=== PATIENT | male | born 1990 | race Caucasian/White ===

== ENCOUNTER 2018-07-26 18:55 | Emergency (ER) | END 2018-07-26 22:47 | disposition home or self-care (01) ==

== ENCOUNTER 2018-08-03 01:10 | Emergency (ER) | END 2018-08-03 02:13 | disposition home or self-care (01) ==

== ENCOUNTER 2018-08-03 22:07 | Emergency (ER) | END 2018-08-03 23:05 | disposition home or self-care (01) ==

== ENCOUNTER 2019-01-31 20:31 | Emergency (ER) | payer SELFPAY ==
[~2019-01-31] VITALS: Ht 160 cm; Wt 82.9 kg
[~2019-01-31 20:31] MED LIST: AZIT250T PO; NAPR-985 PO; OMEP20CA16 PO; ONDA4TAB14 PO; ONDA4TAB8 PO; RANI150T35 PO
[2019-01-31 20:35] VITALS: BP 136/82; PULSE 78; RESP 18; Ht 160 cm; Wt 82.9 kg
[2019-02-01] MEDS ORDERED: MAGN296S40 PO (22:11)
[2019-02-01] MEDS ORDERED: MAGN400O19 PO (22:11)
== END 2019-01-31 21:20 | disposition left against medical advice (07) ==
LOC: FTE 20:31
DX: Z53.21 Procedure and treatment not carried out due to patient leaving prior to being seen by health care provider (principal)

== ENCOUNTER 2019-02-01 19:58 | Emergency (ER) | payer OTHER ==
[~2019-02-01] VITALS: Ht 172.7 cm; Wt 83.9 kg
[2019-02-01 20:01] VITALS: Ht 172.7 cm; Wt 83.9 kg
--- NOTE | 2019-02-01 20:14 | ERD ---
ER Documentation Chief Complaint Chief Complaint AP, CONSTIPATION, BACK PAIN X'S 10 DAYS HPI 28-year-old male, previously healthy, presents to the emergency department, complaining of 10 days with intermittent episodes of abdominal pain, constipation and back pain. He denies fevers, no chills, no nausea vomiting, no weight loss, no red blood per rectum. The patient was seen 2 days ago at [facility], where he had extensive workup including a CT of the abdomen, according to the patient he was diagnosed with constipation. The patient is also requesting a prescription for a cough medication with codeine for cough. ROS All systems reviewed and are negative except as per history of present illness. Medications Home Meds Active Scripts Magnesium Citrate* (Magnesium Citrate*) 296 Ml Solution, 296 ML PO ONCE, #1 BOTTLE Prov:KAREEM HALL MD 02/01/19 Magnesium Hydroxide* (Milk Of Magnesia*) 400 Mg/5 Ml Oral.susp, 30 ML PO BID for 3 Days, #1 BOTTLE Prov:KAREEM HALL MD 02/01/19 Ranitidine Hcl* (Zantac*) 150 Mg Tablet, 150 MG PO BID PRN for EPIGASTRIC PAIN, #30 TAB Prov:KENY LUCERO PA-C 08/03/18 Omeprazole* (Omeprazole*) 20 Mg Capsule.dr, 20 MG PO DAILY, #20 Prov:KENY LUCERO PA-C 08/03/18 Ondansetron (Ondansetron Odt) 4 Mg Tab.rapdis, 4 MG PO Q6H PRN for NAUSEA AND/OR VOMITING, #10 TAB Prov:KENY LUCERO PA-C 08/03/18 Azithromycin* (Zithromax*) 250 Mg Tablet, 250 MG PO .AddyPACK DIRECTED, #6 TAB TAKE 500 MG (2 TABS) THE FIRST DAY THEN 250 MG (1 TAB) DAYS 2-5 Prov:LUIS HUFFMAN PA-C 08/03/18 Naproxen* (Naprosyn*) 500 Mg Tablet, 500 MG PO BID PRN for PAIN AND/OR INFLAMMATION, #30 TAB Prov:TYLER BADILLO PA-C 07/26/18 Ondansetron Hcl* (Zofran*) 4 Mg Tablet, 4 MG PO Q6H for NAUSEA AND/OR VOMITING, #30 TAB Prov:TYLER BADILLO PA-C 07/26/18 Allergies Allergies: Coded Allergies: No Known Allergy (Unverified , 07/26/18) PMhx/Soc Hx Alcohol Use: Yes Hx Substance Use: No Hx Tobacco Use: No Physical Exam Vitals Vital Signs Date Temp Pulse Resp B/P (MAP) Pulse Ox O2 O2 Flow FiO2 Time Delivery Rate 02/01/19 97.0 107 18 138/75 98 20:01 (96) Physical Exam Const: No acute distress Head: Atraumatic Eyes: Normal Conjunctiva ENT: Normal External Ears, Nose and Mouth. Neck: Full range of motion. No meningismus. Resp: Clear to auscultation bilaterally Cardio: Regular rate and rhythm, no murmurs Abd: Soft, non tender, non distended. Normal bowel sounds Skin: No petechiae or rashes Back: No midline or flank tenderness Ext: No cyanosis, or edema Neur: Awake and alert Psych: Normal Mood and Affect Result Diagram: 02/01/19205202/01/192052 Results 24 hrs Laboratory Tests Test 02/01/19 20:53 White Blood Count 7.3 10^3/ul Red Blood Count 5.15 10^6/ul Hemoglobin 14.5 g/dl Hematocrit 43.3 % Mean Corpuscular Volume 84.1 fl Mean Corpuscular Hemoglobin 28.2 pg Mean Corpuscular Hemoglobin Concent 33.5 g/dl Red Cell Distribution Width 11.3 % Platelet Count 244 10^3/UL Mean Platelet Volume 9.9 fl Immature Granulocytes % 0.400 % Neutrophils % 67.8 % Lymphocytes % 21.4 % Monocytes % 8.8 % Eosinophils % 1.1 % Basophils % 0.5 % Nucleated Red Blood Cells % 0.0 /100WBC Immature Granulocytes # 0.030 10^3/ul Neutrophils # 4.9 10^3/ul Lymphocytes # 1.6 10^3/ul Monocytes # 0.6 10^3/ul Eosinophils # 0.1 10^3/ul Basophils # 0.0 10^3/ul Nucleated Red Blood Cells # 0.0 10^3/ul Urine Color YELLOW Urine Clarity CLEAR Urine pH 7.0 Urine Specific [place] 1.016 Urine Ketones TRACE mg/dL Urine Nitrite NEGATIVE mg/dL Urine Bilirubin NEGATIVE mg/dL Urine Urobilinogen NEGATIVE mg/dL Urine Leukocyte Esterase NEGATIVE [place]vis/ul Urine Hemoglobin NEGATIVE mg/dL Urine Glucose NEGATIVE mg/dL Urine Total Protein NEGATIVE mg/dl Sodium Level 142 mmol/L Potassium Level 4.1 mmol/L Chloride Level 102 mmol/L Carbon Dioxide Level 30 mmol/L Anion Gap 10 Blood Urea Nitrogen 15 mg/dl Creatinine 0.92 mg/dl Est Glomerular Filtrat Rate mL/min > 60 mL/min Glucose Level 97 mg/dl Calcium Level 9.9 mg/dl Total Bilirubin 0.4 mg/dl Direct Bilirubin 0.00 mg/dl Indirect Bilirubin 0.4 mg/dl Aspartate Amino Transf (AST/SGOT) 22 IU/L Alanine Aminotransferase (ALT/SGPT) 14 IU/L Alkaline Phosphatase 51 IU/L Total Protein 7.6 g/dl Albumin 4.7 g/dl Globulin 2.90 g/dl Albumin/Globulin Ratio 1.62 Lipase 156 U/L Current Medications Medications Dose Sig/Ayaka Start Time Status Last (Trade) Ordered Route PRN Stop Time Admin Dose Reason Admin 40 ml ONCE ONCE 02/01/19 DC 02/01/19 Miscellaneous PO 21:00 20:50 Medication 02/01/19 21:01 (Gi Cocktail (2)) Magnesium 30 ml ONCE ONCE 02/01/19 DC 02/01/19 Hydroxide PO 21:30 21:54 (Milk Of Mag) 02/01/19 21:31 Magnesium 300 ml ONCE ONCE 02/01/19 DC 02/01/19 Citrate PO 21:30 21:54 (Citroma) 02/01/19 21:31 Patient: CAM SOLIS : 1990 Age: 28 Sex: M [id number]: 02/01/192040 Ordering MD: KAREEM HALL MD Location: [facility] Room/Bed: PROCEDURE: XR Abdomen. CLINICAL INDICATION: Pain TECHNIQUE: Five AP erect and supine abdomen x-rays were obtained. COMPARISON: None. FINDINGS: There is abundant stool throughout the left and sigmoid colon. There is no evidence of obstruction or ileus. There is no free gas. There are no abnormal calcifications . The osseus structures are unremarkable. IMPRESSION: No bowel obstruction or ileus. Abundant stool in the left and sigmoid colon. Procedures/MDM Differential diagnosis include but not limited to: bowel Obstruction, ileus, fecal impaction. Low suspicion for acute abdomen. Physical examination and clinical presentation consistent most likely with constipation without evidence of impaction. During the ED course the patient remained stable, no new complaints. Treatment options, results and clinical impression discussed with the patient who agrees with management. The patient is stable to be treated outpatient and will be discharged home. some side effects of prescribed medications were reviewed. The patient was instructed to follow up with the primary care provider in the next 48h. If symptoms persist, worsen or new symptoms develop, then patient should return to the ED immediately. Instructions explained and given directly by me to the patient with acknowledgment and demonstrated understanding. Disclaimer: Inadvertent spelling and grammatical errors are likely due to EHR/dictation software use and do not reflect on the overall quality of patient care. Also, please note that the electronic time recorded on this note does not necessarily reflect the actual time of the patient encounter. Departure Diagnosis: Primary Impression: Constipation Additional Impression: Abdominal pain Condition: Stable Patient Instructions: Constipation (Adult) Additional Instructions: Thank you very much for allowing us to participate in your care. Your health and safety is our top priority at [facility]. Call your primary care doctor TOMORROW for an appointment during the next 2-4 days and bring all the information and medications prescribed. Have prescriptions filled and follow precisely the directions on the label. If the symptoms get worse and your provider is unavailable, return to the Emergency Department immediately. KAREEM HALL MD Feb 01, 2019 20:14
[2019-02-01] MEDS ORDERED: LIDOCAINE/MYLANTA 40 ML BTL PO ONE (21:00)
[2019-02-01] MEDS ORDERED: MAGNESIUM HYDROXIDE 30ML CUP PO ONE (21:30)
[2019-02-01] MEDS ORDERED: MAGNESIUM CITRATE 300 ML BTL PO ONE (21:30)
[2019-02-01] MEDS ORDERED: MAGN296S40 PO (22:11)
[2019-02-01] MEDS ORDERED: MAGN400O19 PO (22:11)
[2019-02-01 22:25] VITALS: BP 124/78; PULSE 74; RESP 16
[2019-02-02] MEDS ORDERED: POLY17PO6 PO (15:31)
[2019-02-02] MEDS ORDERED: BISA-57 PO (15:31)
== END 2019-02-01 22:26 | disposition home or self-care (01) ==
LOC: FTE 19:58
DX: K59.00 Constipation, unspecified (principal)
CPT/HCPCS: 36415; 74019; 80053; 81003; 83690; 85025; Z7502; Z7610

== ENCOUNTER 2019-02-02 13:56 | Emergency (ER) | payer OTHER ==
[~2019-02-02] VITALS: Ht 172.7 cm; Wt 81.8 kg
[~2019-02-02 13:56] MED LIST changes: +MAGN296S40 PO; +MAGN400O19 PO
[2019-02-02 13:58] VITALS: BP 134/85; PULSE 102; RESP 18; Ht 172.7 cm; Wt 81.8 kg
[2019-02-02] MEDS ORDERED: NA PHOSPHATE/BIPHOS 133 ML ENEMA PR ONE (15:00)
[2019-02-02] MEDS ORDERED: BISACODYL 10 MG SUPP PR ONE (15:00)
[2019-02-02] MEDS ORDERED: POLY17PO6 PO (15:31)
[2019-02-02] MEDS ORDERED: BISA-57 PO (15:31)
--- NOTE | 2019-02-02 15:36 | ERD ---
ER Documentation Chief Complaint Chief Complaint ON AND OFF ABDOMINAL PAIN AND DIARRHEA STARTED JANUARY 20 HPI 28-year-old male presents with intermittent abdominal pain and constipation which she states is been since 2 weeks ago. Is been seen at multiple hospitals and he had a CT scan 2 days ago and was seen here yesterday. He states that he does not have a bowel movement with milk of magnesia and magnesium citrate. He denies fevers, vomiting, current abdominal pain. He is requesting a chest x-ray for left chest wall pain. He states that he had a normal EKG at [place] 2-3 days ago. Patient has a history of multiple ER visits for variety of complaints. Patient denies any opiate use although note is made of a request for promethazine with codeine at yesterday's visit. ROS All systems reviewed and are negative except as per history of present illness. Medications Home Meds Active Scripts Polyethylene Glycol* (Miralax*) 17 Gm Powd.pack, 17 GM PO DAILY, #7 Prov:GOSIA CHOWDHURY MD 02/02/19 Bisacodyl* (Dulcolax*) 5 Mg Tablet.dr, 10 MG PO DAILY PRN for CONSTIPATION, #10 TAB Prov:GOSIA CHOWDHURY MD 02/02/19 Magnesium Citrate* (Magnesium Citrate*) 296 Ml Solution, 296 ML PO ONCE, #1 BOTTLE Prov:KAREEM HALL MD 02/01/19 Magnesium Hydroxide* (Milk Of Magnesia*) 400 Mg/5 Ml Oral.susp, 30 ML PO BID for 3 Days, #1 BOTTLE Prov:KAREEM HALL MD 02/01/19 Ranitidine Hcl* (Zantac*) 150 Mg Tablet, 150 MG PO BID PRN for EPIGASTRIC PAIN, #30 TAB Prov:KENY LUCERO PA-C 08/03/18 Omeprazole* (Omeprazole*) 20 Mg Capsule., 20 MG PO DAILY, #20 Prov:KENY LUCERO PA-C 08/03/18 Ondansetron (Ondansetron Odt) 4 Mg Tab.rapdis, 4 MG PO Q6H PRN for NAUSEA AND/OR VOMITING, #10 TAB Prov:KENY LUCERO PA-C 08/03/18 Azithromycin* (Zithromax*) 250 Mg Tablet, 250 MG PO .MENDOZA DIRECTED, #6 TAB TAKE 500 MG (2 TABS) THE FIRST DAY THEN 250 MG (1 TAB) DAYS 2-5 Prov:HUFFMANLUIS ZAPATA 08/03/18 Naproxen* (Naprosyn*) 500 Mg Tablet, 500 MG PO BID PRN for PAIN AND/OR INFLAMMATION, #30 TAB Prov:TYLER BADILLO PA-C 07/26/18 Ondansetron Hcl* (Zofran*) 4 Mg Tablet, 4 MG PO Q6H for NAUSEA AND/OR VOMITING, #30 TAB Prov:TYLER BADILLO PA-C 07/26/18 Allergies Allergies: Coded Allergies: No Known Allergy (Unverified , 02/02/19) PMhx/Soc Medical and Surgical Hx: pt denies Medical Hx, pt denies Surgical Hx Hx Alcohol Use: Yes (SOCIALLY ) Hx Substance Use: No Hx Tobacco Use: No Smoking Status: Never smoker FmHx Family History: No diabetes, No coronary disease, No other Physical Exam Vitals Vital Signs Date Temp Pulse Resp B/P (MAP) Pulse Ox O2 O2 Flow FiO2 Time Delivery Rate 02/02/19 99.0 102 18 134/85 96 13:58 (101) Physical Exam Const: No acute distress Head: Atraumatic Eyes: Normal Conjunctiva ENT: Normal External Ears, Nose and Mouth. Neck: Full range of motion. No meningismus. Resp: Clear to auscultation bilaterally Cardio: Regular rate and rhythm, no murmurs Abd: Soft, non tender, non distended. Normal bowel sounds. Rectal exam shows soft stool in the vault. Suppository placed. No external lesions or masses. No melanotic stool or gross blood. Skin: No petechiae or rashes Back: No midline or flank tenderness Ext: No cyanosis, or edema Neur: Awake and alert Psych: Normal Mood and Affect Results 24 hrs Current Medications Medications Dose Sig/Ayaka Start Time Status Last (Trade) Ordered Route PRN Stop Time Admin Dose Reason Admin Bisacodyl 10 mg ONCE ONCE 02/02/19 DC 02/02/19 (Dulcolax NM 15:00 15:14 Supp) 02/02/19 15:01 Sodium 133 ml ONCE ONCE 02/02/19 DC 4/17/19 Biphosphate/ NM 15:00 15:14 Sodium 02/02/19 15:01 Phosphate (Fleet Enema) Procedures/MDM Patient presents with a history of complaints of constipation although he has soft stool in the rectal vault. There is no signs of obstruction, x-ray yesterday showed no ileus but did show signs of constipation. He has no signs of concerning abdominal pain, additional signs or symptoms. We will give a prescription of continuation of Dulcolax as well as enema as needed if he is unable to have a bowel movement. Patient return for fevers, vomiting, abdominal pain, new worsening symptoms with primary care doctor. The patient was stable with no new complaints during the ER course. Clinically, there is no current evidence to suggest meningitis, sepsis, acute abdomen, pneumonia, stroke, acute coronary syndrome, pulmonary embolism, aortic dissection or any other emergent condition appearing to require further evaluation or hospitalization. Patient counseled regarding my diagnostic impression and care plan. Prior to discharge all questions answered. Pt agrees with treatment plan and understands strict return precautions. Pt is instructed to follow up with primary care provider within 24-48 hours. Precautionary instructions provided including instructions to return to the ER if not improving or for any worsening or changing symptoms or concerns. Chest X-ray 1V Interpreted by me: Soft Tissue: No acute abnormalities Bones: No acute abnormalities Mediastinum/Cardiac Silhouette/Lungs: No acute abnormalities. Impression- normal 1 view chest x-ray EKG deferred for chest wall pain given normal EKG report 2 days ago and patient well-appearing without concerning signs or symptoms. Departure Diagnosis: Primary Impression: Constipation Constipation type: unspecified constipation type Qualified Codes: K59.00 - Constipation, unspecified Condition: Stable Patient Instructions: Constipation (Adult) Additional Instructions: No current signs or symptoms of concerning causes of constipation. Drink plenty of fluids at home. Use suppository as directed. Okay to use enema at home. GOSIA CHOWDHURY MD Feb 02, 2019 15:36
== END 2019-02-02 15:42 | disposition home or self-care (01) ==
LOC: FTE 13:56
DX: K59.00 Constipation, unspecified (principal)
CPT/HCPCS: 71045; Z7502; Z7610

== ENCOUNTER 2019-02-17 00:39 | Emergency (ER) | payer OTHER ==
[~2019-02-17] VITALS: Wt 79.9 kg
[~2019-02-17 00:39] MED LIST changes: +BISA-57 PO; +POLY17PO6 PO
[2019-02-17 00:44] VITALS: BP 138/86; PULSE 107; RESP 20; Wt 79.9 kg
--- NOTE | 2019-02-17 01:48 | ERD ---
ER Documentation Chief Complaint Chief Complaint AP, NAUSEA X'S 2 WEEKS HPI 29-year-old male presents with complaint of abdominal pain sore throat for the past 2 weeks. States that he has been to his many different emergency rooms [place] recent[place] one being yesterday and they did a CT of the abdomen and pelvis and the results were within normal limits. In addition he has been getting blood work and all those results within normal limits as well. He states that he is frustrated that he does not know the diagnosis but he is currently awaiting a referral to a slot manager from his primary care provider. He states that he would like to get an infectious disease panel to possibly rule out an infectious disease. Denies any fevers, chills, vomiting, dysuria, hematuria. ROS All systems reviewed and are negative except as per history of present illness. Medications Home Meds Active Scripts Polyethylene Glycol* (Miralax*) 17 Gm Powd.pack, 17 GM PO DAILY, #7 Prov:GOSIA CHOWDHURY MD 02/02/19 Bisacodyl* (Dulcolax*) 5 Mg Tablet., 10 MG PO DAILY PRN for CONSTIPATION, #10 TAB Prov:GOSIA CHOWDHURY MD 02/02/19 Magnesium Citrate* (Magnesium Citrate*) 296 Ml Solution, 296 ML PO ONCE, #1 BOTTLE Prov:KAREEM HALL MD 02/01/19 Magnesium Hydroxide* (Milk Of Magnesia*) 400 Mg/5 Ml Oral.susp, 30 ML PO BID for 3 Days, #1 BOTTLE Prov:KAREEM HALL MD 02/01/19 Ranitidine Hcl* (Zantac*) 150 Mg Tablet, 150 MG PO BID PRN for EPIGASTRIC PAIN, #30 TAB Prov:KENY LUCERO PA-C 08/03/18 Omeprazole* (Omeprazole*) 20 Mg Capsule., 20 MG PO DAILY, #20 Prov:KENY LUCERO PA-C 08/03/18 Ondansetron (Ondansetron Odt) 4 Mg Tab.rapdis, 4 MG PO Q6H PRN for NAUSEA AND/OR VOMITING, #10 TAB Prov:KENY LUCERO PA-C 08/03/18 Azithromycin* (Zithromax*) 250 Mg Tablet, 250 MG PO .ZPACK DIRECTED, #6 TAB TAKE 500 MG (2 TABS) THE FIRST DAY THEN 250 MG (1 TAB) DAYS 2-5 Prov:LUIS HUFFMAN PA-C 08/03/18 Naproxen* (Naprosyn*) 500 Mg Tablet, 500 MG PO BID PRN for PAIN AND/OR INFLAMMATION, #30 TAB Prov:TYLER BADILLO PA-C 07/26/18 Ondansetron Hcl* (Zofran*) 4 Mg Tablet, 4 MG PO Q6H for NAUSEA AND/OR VOMITING, #30 TAB Prov:TYLER BADILLO PA-C 07/26/18 Allergies Allergies: Coded Allergies: No Known Allergy (Unverified , 02/02/19) PMhx/Soc Medical and Surgical Hx: pt denies Medical Hx, pt denies Surgical Hx Hx Alcohol Use: No Hx Substance Use: No Hx Tobacco Use: No Smoking Status: Never smoker FmHx Family History: No diabetes, No coronary disease, No other Physical Exam Vitals Vital Signs Date Temp Pulse Resp B/P (MAP) Pulse Ox O2 O2 Flow FiO2 Time Delivery Rate 02/17/19 97.9 107 20 138/86 97 00:44 (103) Physical Exam Const: No acute distress Head: Atraumatic Eyes: Normal Conjunctiva ENT: Normal External Ears, Nose and Mouth. Tonsils are moderately erythemato us but nonedematous bilaterally. Uvula is midline. There are no peritonsillar masses noted. Neck: Full range of motion. No meningismus. Resp: Clear to auscultation bilaterally Cardio: Regular rate and rhythm, no murmurs Abd: Soft, non tender, non distended. Normal bowel sounds Skin: No petechiae or rashes Back: No midline or flank tenderness Ext: No cyanosis, or edema Neur: Awake and alert Psych: Normal Mood and Affect Result Diagram: 02/17/193 02/17/19 0123 Results 24 hrs Laboratory Tests Test 02/17/19 01:23 White Blood Count 8.9 10^3/ul Red Blood Count 5.58 10^6/ul Hemoglobin 15.8 g/dl Hematocrit 46.6 % Mean Corpuscular Volume 83.5 fl Mean Corpuscular Hemoglobin 28.3 pg Mean Corpuscular Hemoglobin Concent 33.9 g/dl Red Cell Distribution Width 11.9 % Platelet Count 286 10^3/UL Mean Platelet Volume 9.8 fl Immature Granulocytes % 0.300 % Neutrophils % 69.0 % Lymphocytes % 21.3 % Monocytes % 8.3 % Eosinophils % 0.5 % Basophils % 0.6 % Nucleated Red Blood Cells % 0.0 /100WBC Immature Granulocytes # 0.030 10^3/ul Neutrophils # 6.1 10^3/ul Lymphocytes # 1.9 10^3/ul Monocytes # 0.7 10^3/ul Eosinophils # 0.0 10^3/ul Basophils # 0.1 10^3/ul Nucleated Red Blood Cells # 0.0 10^3/ul Urine Color ARLEN Urine Clarity SLIGHTLY CLOUDY Urine pH 5.0 Urine Specific [place] 1.032 Urine Ketones 2+ mg/dL Urine Nitrite NEGATIVE mg/dL Urine Bilirubin NEGATIVE mg/dL Urine Urobilinogen 1+ mg/dL Urine Leukocyte Esterase NEGATIVE [place]vis/ul Urine Microscopic RBC 3 /HPF Urine Microscopic WBC 0 /HPF Urine Renal Epithelial Cells FEW /HPF Urine Mucus MANY /HPF Urine Hemoglobin NEGATIVE mg/dL Urine Glucose NEGATIVE mg/dL Urine Total Protein 1+ mg/dl Sodium Level 144 mmol/L Potassium Level 4.4 mmol/L Chloride Level 100 mmol/L Carbon Dioxide Level 33 mmol/L Anion Gap 11 Blood Urea Nitrogen 19 mg/dl Creatinine 1.04 mg/dl Est Glomerular Filtrat Rate mL/min > 60 mL/min Glucose Level 118 mg/dl Calcium Level 10.6 mg/dl Total Bilirubin 0.6 mg/dl Direct Bilirubin 0.00 mg/dl Indirect Bilirubin 0.6 mg/dl Aspartate Amino Transf (AST/SGOT) 30 IU/L Alanine Aminotransferase (ALT/SGPT) 25 IU/L Alkaline Phosphatase 55 IU/L Total Protein 8.3 g/dl Albumin 5.2 g/dl Globulin 3.10 g/dl Albumin/Globulin Ratio 1.67 Rapid Plasma Reagin Pending Hepatitis C Antibody NEGATIVE Monoscreen Positive HIV (1&2) Antibody NEGATIVE Procedures/MDM MDM: Results were positive for mono which could account for patient's sore throat as well as some of his other nebulous constitutional symptoms. Patient advised to refrain from contact sports and follow-up with his primary care provider. Patient also advised to rest and stay well-hydrated. Patient educated them on it was very contagious and he should not be sharing saliva or drinks with any others until he is better. I have suspicion for bursitis, cholecystitis, cholelithiasis, or any other emergent condition. Patient discharged with strict ER precautions. Patient advised to follow up with PMD. All questions answered at discharge. Departure Diagnosis: Primary Impression: Mononucleosis Infectious mononucleosis etiology: unspecified organism Infectious mononucleosis complication: without complication Qualified Codes: B27.90 - Infectious mononucleosis, unspecified without complication Condition: KENY Askew February 17, 2019 01:48
[2019-02-17] MEDS ORDERED: IBUP-1542 PO (04:28)
== END 2019-02-17 07:08 | disposition left against medical advice (07) ==
LOC: FTE 00:39
DX: B27.90 Infectious mononucleosis, unspecified without complication (principal)
CPT/HCPCS: 80053; 81001; 85025; 86308; 86592; 86703; 86706; 86803; 87340; Z7502; 99283